=== PATIENT | male | born 1950 | race African-American/Black ===

== ENCOUNTER 2020-05-24 11:12 | Emergency (ER) | payer MEDICARE, OTHER ==
--- NOTE | 2020-05-24 11:40 | ER Document Report ---
ED General - General Chief Complaint: Shortness Of Breath Stated Complaint: SHORT OF BREATH Time Seen by Provider: 05/24/20 11:40 Primary Care Provider: JANAE COUGHLIN MD [ACTIVE STAFF] - Follow up as needed - HPI Notes: 69-year-old male presents to the emergency room for evaluation of shortness of breath for the last week. Reports comes and goes, states worse when he is walking. Denies any history of COPD, asthma, denies smoking. Denies any chest pain, nausea vomiting or diarrhea. Patient has never been checked for Covid. States last Tuesday, he went outdoors [id number]'s house and he found out that he had Covid, he did leave. Has not tried any [id number]-[id number] medications. Denies fevers, chills, chest pain,palpitations, dyspnea, nausea, vomiting, diarrhea, abdominal pain, hematuria,blurred vision, double vision, loss of vision, speech changes, LH, dizziness, syncope, headaches, wheezing, ST, URI, neck pain, weakness, bowel or bladder dysfunction, saddle anesthesia, numbness or tingling in bilateral upper or lower extremities equally, muscle paralysis, weakness in bilateral upper or lower extremities equally or rash. - Related Data Allergies/Adverse Reactions: No Known Allergies Allergy (Verified 05/24/20 13:02) Past Medical History - General Information source: Patient - Social History Smoking Status: Former Smoker Family History: None, Reviewed & Not Pertinent - Immunizations Hx Diphtheria, Pertussis, Tetanus Vaccination: No Review of Systems - Review of Systems Constitutional: No symptoms reported EENT: No symptoms reported Cardiovascular: No symptoms reported Respiratory: See HPI Gastrointestinal: No symptoms reported Genitourinary: No symptoms reported Male Genitourinary: No symptoms reported Musculoskeletal: No symptoms reported Skin: No symptoms reported Hematologic/Lymphatic: No symptoms reported Neurological/Psychological: No symptoms reported Physical Exam - Vital signs Vitals: Temp Pulse Resp BP Pulse Ox 97.5 F 104 H 16 156/82 H 95 05/24/20 11:29 05/24/20 11:29 05/24/20 11:29 05/24/20 11:29 05/24/20 11:29 - Notes Notes: MEDICATIONS: I agree with the patient medications as charted by the RN. ALLERGIES: I agree with the allergies as charted by the RN. PAST MEDICAL HISTORY/PAST SURGICAL HISTORY: Reviewed and agree as charted by RN. SOCIAL HISTORY: Reviewed and agree as charted by RN. FAMILY HISTORY: No significant familial comorbid conditions directly related to patient complaint EXAM: Reviewed vital signs as charted by RN. ALL OTHER SYSTEMS REVIEWED AND NEGATIVE. Dictation was performed using [employer] recognition software PHYSICAL EXAMINATION: GENERAL: Well-appearing, well-nourished and in no acute distress. HEAD: Atraumatic, normocephalic. EYES: Pupils equal round and reactive to light, extraocular movements intact, sclera anicteric, conjunctiva are normal. ENT: Nares patent, oropharynx clear without exudates. Moist mucous membranes. NECK: Normal range of motion, supple without lymphadenopathy LUNGS: Breath sounds clear to auscultation bilaterally and equal. No wheezes rales or rhonchi. HEART: Regular rate and rhythm without murmurs ABDOMEN: Soft, nontender, nondistended abdomen. No guarding, no rebound. No masses appreciated. Musculoskeletal: Normal range of motion, no pitting or edema. No cyanosis. NEUROLOGICAL: Cranial nerves grossly intact. Normal speech, normal gait. Normal sensory, motor exams PSYCH: Normal mood, normal affect. SKIN: Warm, Dry, normal turgor, no rashes or lesions noted. Course - Re-evaluation Re-evalutation: 05/24/20 15:15 Afebrile vital stable no distress. Nurses notes reviewed. CBC negative leukocytosis or anemia, CMP negative for hepatic or renal dysfunction, no electrolyte disturbances. Chest x-ray unremarkable. Rapid flu negative. Covid test is pending. Discussed with patient that he does need to self quarantine, wash his hands frequently, wear his mask until his Covid test is resulted by the health department. Advised to take prednisone and proair as directed. Follow- up with a primary care provider next 24 to 48 hours. After performing a Medical Screening Examination, I estimate there is LOW risk for ACUTE CORONARY SYNDROME, PULMONARY EMBOLI, RESPIRATORY FAILURE, SEPSIS OR MENINGITIS, thus I consider the discharge disposition reasonable. I have reevaluated this patient multiple times and no significant life threatening changes are noted. The patient and I have discussed the diagnosis and risks, and we agree with discharging home with close follow-up. We also discussed returning to the Emergency Department immediately if new or worsening symptoms occur. We have discussed the symptoms which are most concerning (e.g., changing or worsening pain, trouble swallowing or breathing, neck stiffness, fever) that necessitate immediate return. - Vital Signs Vital signs: Temp Pulse Resp BP Pulse Ox 98.0 F 92 16 130/77 H 99 05/24/20 14:07 05/24/20 14:07 05/24/20 14:07 05/24/20 14:07 05/24/20 14:07 - Laboratory Result Diagrams: 05/24/20 12:39 05/24/20 12:39 Laboratory results interpreted by me: 05/24/20 05/24/20 12:39 12:39 RDW 14.1 H Plt Count 142 L Sodium 136.8 L Glucose 133 H Discharge - Discharge Clinical Impression: Person under investigation for COVID-19 Condition: Stable Disposition: HOME, SELF-CARE Instructions: COVID-19 Guidance for Persons Under Investigation Additional Instructions: your labs today were normal. Your EKG was normal, your troponin was normal, your chest x-ray was normal. You are under investigation for Covid, please self quarantine, wear your mask, wash your hands frequently until the Covid results is known. Take the prednisone and use a rescue inhaler as directed. Please follow-up with a primary care provider within the next 24 to 48 hours return immediately for any new or worsening symptoms. Follow up with primary care provider, call tomorrow to make followup appointment. Prescriptions: Prednisone [Deltasone 20 mg Tablet] 3 tab PO DAILY 5 Days #15 tablet Albuterol Sulfate [Proair HFA Inhalation Aerosol 8.5 gm MDI] 2 puff IH Q4H PRN #1 mdi PRN Reason: Forms: Return to Work Referrals: JANAE COUGHLIN MD [ACTIVE STAFF] - Follow up as needed
[2020-05-24 13:02] LABS: ABSOLUTE EOSINOPHILS # (AUTO) 0.1 10^3/uL (0.0-0.6); ABSOLUTE LYMPHOCYTES (AUTO) 0.9 10^3/uL (0.5-4.7); ABSOLUTE MONOCYTES (AUTO) 0.5 10^3/uL (0.1-1.4); ABSOLUTE NEUT (AUTO) 3.4 10^3/uL (1.7-8.2); BASOPHILS % (AUTO) 0.2 % (0-2); EOSINOPHILS % (AUTO) 1.1 % (0-6); HEMATOCRIT 40.6 % (37.9-51.0); HEMOGLOBIN 13.6 g/dL (13.5-17.0); LYMPHOCYTES % (AUTO) 18.5 % (13-45); MEAN CORPUSCULAR HEMOGLOBIN 28.1 pg (27.0-33.4); MEAN CORPUSCULAR HGB CONC 33.6 g/dL (32.0-36.0); MEAN CORPUSCULAR VOLUME 84 fl (80-97); MONOCYTES % (AUTO) 11.1 % (3-13); PLATELET COUNT 142 10^3/uL (150-450); RED BLOOD COUNT 4.85 10^6/uL (4.35-5.55); RED CELL DISTRIBUTION WIDTH 14.1 % (11.5-14.0); SEGMENTED NEUTROPHILS % (AUTO) 69.1 % (42-78); TOTAL CELLS COUNTED % (AUTO) 100 %; WHITE BLOOD COUNT 4.9 10^3/uL (4.0-10.5)
--- NOTE | 2020-05-24 13:06 | RADIOLOGY REPORT (SQ) ---
EXAM DESCRIPTION: CHEST SINGLE VIEW IMAGES COMPLETED DATE/TIME: 05/24/2020 11:27 am REASON FOR STUDY: sob. COMPARISON: None. EXAM PARAMETERS: NUMBER OF VIEWS: One view. TECHNIQUE: Single frontal radiographic view of the chest acquired. RADIATION DOSE: NA LIMITATIONS: None. FINDINGS: LUNGS AND PLEURA: Lungs are hyperinflated. No opacities, masses or pneumothorax. No pleur al effusion. MEDIASTINUM AND HILAR STRUCTURES: No masses. Contour normal. HEART AND VASCULAR STRUCTURES: Heart normal in size. Normal vasculature. BONES: No acute findings. HARDWARE: None in the chest. OTHER: No other significant finding. IMPRESSION: NO ACUTE RADIOGRAPHIC FINDING IN THE CHEST. TECHNICAL DOCUMENTATION: JOB ID: [id number] 2010 [employer]- All Rights Reserved Reading location - IP/workstation name: [email or web address]
[2020-05-24 13:16] LABS: ALBUMIN 4.3 g/dL (3.5-5.0); ALKALINE PHOSPHATASE 98 U/L (38-126); ANION GAP 8 (5-19); ASPARTATE AMINO TRANSFERASE 32 U/L (17-59); BILIRUBIN,TOTAL 0.6 mg/dL (0.2-1.3); BLOOD UREA NITROGEN 15 mg/dL (7-20); CALCIUM 9.4 mg/dL (8.4-10.2); CARBON DIOXIDE 27 mmol/L (22-30); CHLORIDE 102 mmol/L (98-107); GLUCOSE 133 mg/dL (75-110); POTASSIUM 4.4 mmol/L (3.6-5.0); TOTAL PROTEIN 8.2 g/dL (6.3-8.2)
[2020-05-24 14:08] VITALS: BP 130/77
[2020-05-24 14:17] LABS: A TYPE INFLUENZA AG NEGATIVE (NEGATIVE); B INFLUENZA AG NEGATIVE (NEGATIVE)
--- NOTE | 2020-05-24 16:48 | EKG REPORT ---
SEVERITY:- NORMAL ECG - SINUS RHYTHM : Confirmed by: Bandar Murray MD 24-May-2020 16:47:45
== END 2020-05-24 14:27 | disposition home or self-care (01) ==
LOC: ER 11:12
DX: R06.02 Shortness of breath (principal); Z20.828 Contact with and (suspected) exposure to other viral communicable diseases; Z87.891 Personal history of nicotine dependence
CPT/HCPCS: 93005; 99285; 36415; 85025; 80053; 84484; 87804; 71045; 93010; U0003; C9803; 87635

== ENCOUNTER 2020-06-10 00:04 | Emergency (ER) | payer MEDICARE ==
[2020-06-10 04:54] LABS: ALBUMIN 4.5 g/dL (3.5-5.0); ALKALINE PHOSPHATASE 113 U/L (38-126); ANION GAP 16 (5-19); ASPARTATE AMINO TRANSFERASE 56 U/L (17-59); BILIRUBIN,DIRECT 0.5 mg/dL (0.0-0.4); BILIRUBIN,TOTAL 1.2 mg/dL (0.2-1.3); BLOOD UREA NITROGEN 35 mg/dL (7-20); CALCIUM 9.7 mg/dL (8.4-10.2); CARBON DIOXIDE 19 mmol/L (22-30); CHLORIDE 103 mmol/L (98-107); GLUCOSE 256 mg/dL (75-110); TOTAL PROTEIN 8.6 g/dL (6.3-8.2)
[2020-06-10 04:55] LABS: ABSOLUTE LYMPHOCYTES (AUTO) 1.5 10^3/uL (0.5-4.7); ABSOLUTE MONOCYTES (AUTO) 0.6 10^3/uL (0.1-1.4); ABSOLUTE NEUT (AUTO) 7.5 10^3/uL (1.7-8.2); BASOPHILS % (AUTO) 0.2 % (0-2); EOSINOPHILS % (AUTO) 0.2 % (0-6); HEMATOCRIT 47.2 % (37.9-51.0); HEMOGLOBIN 15.6 g/dL (13.5-17.0); LYMPHOCYTES % (AUTO) 15.8 % (13-45); MEAN CORPUSCULAR HEMOGLOBIN 28.4 pg (27.0-33.4); MEAN CORPUSCULAR VOLUME 86 fl (80-97); MONOCYTES % (AUTO) 6.2 % (3-13); PLATELET COUNT 180 10^3/uL (150-450); RED BLOOD COUNT 5.49 10^6/uL (4.35-5.55); RED CELL DISTRIBUTION WIDTH 14.9 % (11.5-14.0); SEGMENTED NEUTROPHILS % (AUTO) 77.6 % (42-78); TOTAL CELLS COUNTED % (AUTO) 100 %; WHITE BLOOD COUNT 9.6 10^3/uL (4.0-10.5)
[2020-06-10] MEDS: NORMAL SALINE 1000 ML 1,000 ML IV PRN ×3 (05:27→08:00)
--- NOTE | 2020-06-10 05:32 | RADIOLOGY REPORT (SQ) ---
EXAM DESCRIPTION: CHEST SINGLE VIEW IMAGES COMPLETED DATE/TIME: 06/10/2020 4:55 am REASON FOR STUDY: shortness of breath COMPARISON: 05/24/2020 EXAM PARAMETERS: NUMBER OF VIEWS: One view. TECHNIQUE: Single frontal radiographic view of the chest acquired. RADIATION DOSE: NA LIMITATIONS: None. FINDINGS: LUNGS AND PLEURA: No opacities, masses or pneumothorax. No pleural effusion. MEDIASTINUM AND HILAR STRUCTURES: No masses. Contour normal. HEART AND VASCULAR STRUCTURES: Heart normal in size. Normal vasculature. BONES: No acute findings. HARDWARE: None in the chest. OTHER: No other significant finding. IMPRESSION: No evidence of acute cardiopulmonary abnormality. TECHNICAL DOCUMENTATION: JOB ID: [id number] 2010 [employer]- All Rights Reserved Reading location - IP/workstation name: [email or web address]
[2020-06-10] MEDS ORDERED: NORMAL SALINE 1000 ML 1,000 ML IV ONE (06:06)
[2020-06-10] MEDS ORDERED: DEXTROSE 50%-WATER 25 GM/50 ML DISP.SYRIN IV ONE (06:33)
[2020-06-10] MEDS ORDERED: CALCIUM GLUCONATE 1000 MG/10 ML INJ IV ONE ×4 (06:33→17:17)
[2020-06-10] MEDS ORDERED: ENOXAPARIN SODIUM INJ 100 MG/1 ML DISP.SYRIN SUBCUT ONE (06:36)
--- NOTE | 2020-06-10 06:38 | RADIOLOGY REPORT (SQ) ---
CT angiogram chest with contrast on 06/10/2020 at 5:41 AM CLINICAL INDICATION: Chest pain, shortness of breath, elevated d-dimer TECHNIQUE: Multiple axial images are obtained throughout the chest following the administration of IV contrast. Computer generated 3D reconstructions/MIPS were performed. This exam was performed according to our departmental dose-optimization program, which includes automated exposure control, adjustment of the mA and/or kV according to patient size and/or use of iterative reconstruction technique. Total DLP is 591.12 mGy*cm. COMPARISON: None FINDINGS: Bolus timing is suboptimal for evaluation of pulmonary embolus but the examination is diagnostic. There are moderate to large sized bilateral filling defects within the central bilateral pulmonary arteries extending into the upper and lower lobe pulmonary arteries consistent with bilateral pulmonary emboli with a moderate to large amount of embolic burden. The right ventricle appears larger than the left ventricle suggesting right heart strain. There is some reflux of contrast into the IVC and hepatic veins indicating elevated right heart pressure. There is no pleural effusion. There is a trace pericardial effusion. Limited visualized upper abdomen is unremarkable. There is no thoracic adenopathy. Right apical pulmonary scarring is noted. There is minimal bilateral dependent atelectasis. The lungs are otherwise clear. No bony abnormality is noted. IMPRESSION: 1. Bilateral pulmonary emboli with moderate to large amount of embolic burden with evidence of likely early right heart strain. Dr. Chisholm in the emergency department was made aware of this finding by myself by phone on 06/10/2020 at 6:36 AM eastern time. 2. No other acute abnormality.
--- NOTE | 2020-06-10 06:44 | ER Document Report ---
ED General - General Chief Complaint: Shortness Of Breath Stated Complaint: DIFFICULTY BREATHING Notes: 69-year-old male without any significant past medical history presents with 1 day of shortness of breath. Patient says he was helping his father lift heavy objects and felt shortness of breath began and has felt short of breath since then that was earlier on day of presentation. Patient denies any recent illness, chest pain, cardiac history, hypertension, hyperlipidemia, diabetes, smoking history, asthma, back pain, abdominal pain, trauma, prior episodes, fev er or chills, cough, myalgia - Related Data Allergies/Adverse Reactions: No Known Allergies Allergy (Verified 05/24/20 13:02) Past Medical History - General Information source: Patient - Social History Smoking Status: Never Smoker Frequency of alcohol use: None Drug Abuse: None Family History: None, Reviewed & Not Pertinent - Immunizations Hx Diphtheria, Pertussis, Tetanus Vaccination: No Review of Systems - Review of Systems Notes: REVIEW OF SYSTEMS: CONSTITUTIONAL : Denies fever, chills, or sweats. EENT: Denies recent cold/sinus symptoms, denies throat pain CARDIOVASCULAR: Denies chest pain, NO RESPIRATORY: Denies cough, + shortness of breath. GASTROINTESTINAL: Denies abdominal pain, nausea/vomiting. GENITOURINARY: Denies difficulty urinating, painful urination. MUSCULOSKELETAL: Denies neck pain, back pain. SKIN: Denies rash or skin lesions. HEMATOLOGIC : Denies easy bruising or bleeding. LYMPHATIC: Denies swollen, enlarged glands. NEUROLOGICAL: Denies headache, denies change in gait. PSYCHIATRIC: Denies anxiety or stress or depression. Physical Exam - Vital signs Vitals: Resp 25 H 06/10/20 00:15 - Notes Notes: PHYSICAL EXAMINATION: GENERAL: Well-appearing, well-nourished and in no acute distress. HEAD: Atraumatic, normocephalic. EYES: Pupils equal round and appropriate constriction, sclera anicteric, conjunctiva are normal. ENT: nares patent, moist mucous membranes. NECK: Normal range of motion, supple without lymphadenopathy LUNGS: Breath sounds clear to auscultation bilaterally and equal. No wheezes rales or rhonchi. Tachypneic, speaking in full sentences. HEART: Tachycardic rate with regular rhythm, no murmurs ABDOMEN: Soft, nontender, no guarding, no masses EXTREMITIES: Normal range of motion, no pitting or edema. No cyanosis. NEUROLOGICAL: Awake, alert, conversing appropriately, moves all extremities spontaneously. PSYCH: Normal mood, normal affect. SKIN: Warm, Dry, normal turgor, no rashes or lesions noted. Course - Re-evaluation Re-evalutation: 06/10/20 06:44 Shortness of breath that began with exertion in 69-year-old male with no known history, but does not closely follow with doctor. Mild tachypnea without any signs of respiratory distress without supplemental oxygen. obtained EKG without any signs of acute ischemia, +tachycardic, no known risk factors but rule out PE given tachycardia also rule out ACS given age and onset with exertion. On work- up patient found to have bilateral PEs without any saddle embolus and signs of mild right heart strain on CT as per radiologist. Patient also found to have new onset of previously unknown renal insufficiency with K of 6 without any EKG abnormalities. Patient given D50 and insulin calcium gluconate and fluids for hyperkalemia and repeat BMP ordered. Withheld serial albuterol given concern for Covid and patient's tachycardia. I repeated EKG which continued not to show any signs of acute ischemia or hyperkalemia. Discussed patient with Dr. Garcias who accepted patient to [facility] and will turn over patient to day hospitalist team. 06/10/20 08:08 At approximately 720 I went in to notify patient that he was waiting for an IMCU bed and PCT was in with patient putting him on nasal cannula. Patient was diaphoretic, and gasping for air, briefly had a pulse ox of 88% and then unable to get pulse ox reading, but was still able to palpate patient's pulse. I placed patient on nonrebreather and called for respiratory and assistance to intubate patient, but patient quickly became unresponsive and then lost pulse. Myself and PCT's were in room when patient lost pulse and ACLS was started immediately and TPA given within few minutes. Dr. Ca came in and led resuscitation while I secured airway. Airway confirmed by condensation, color change, visualization of tube passing through the vocal cords, and bilateral breath sounds. Patient had high pulse ox during resuscitation but then repeated pulse checks remained pulseless. Was in PEA except for 1 brief run of V. tach which was shocked with 200 J. I performed several snvvs-hs-vshi ultrasounds which showed organized but bradycardic cardiac activity, distended RV, no pericardial effusion/tamponade,and b/l lung sliding. 06/10/20 08:36 Dr. Ca was resuscitating patient after ROSC when patient lost pulses again. Dr. Ca called time of . Dr. Ca to write certificate and I informed patient's next of kin, his daughter Yohana Vital. - Vital Signs Vital signs: Temp Pulse Resp BP Pulse Ox 98.4 F 17 117/98 H 98 06/10/20 06:30 06/10/20 07:00 06/10/20 07:00 06/10/20 05:01 - Laboratory Results Result Diagrams: 06/10/20 00:38 06/10/20 00:38 Laboratory Results Interpreted: 06/10/20 06/10/20 06/10/20 00:38 00:38 05:18 RDW 14.9 H D-Dimer > 20.00 H* Potassium 6.0 H* Carbon Dioxide 19 L BUN 35 H Creatinine 2.67 H Est GFR ( Amer) 29 L Est GFR (MDRD) Non-Af 24 L Glucose 256 H Direct Bilirubin 0.5 H ALT 100 H Total Protein 8.6 H Critical Laboratory Results Reviewed: Yes Attending or Supervising Physician who Reviewed Labs: [facility]YAN - Radiology Results Critical Radiology Results Reviewed: Yes Attending or Supervising Physician who Reviewed Radiology: [facility] BRYAN - EKG Interpretation by Me Additional EKG results interpreted by me: 06/10/20 07:18 Initial EKG: Sinus tachycardia, no significant ST elevations or depressions, no peaked T waves, normal intervals Repeat EKG: Sinus tachycardia, no significant ST elevations or depressions, no peaked T waves, mildly prolonged QT, otherwise normal intervals, no significant change from prior EKG Procedures - Intubation Orotracheal Time of Intubation: 07:30 - 06/10/20 Airway evaluation: Normal anatomy Intubation method: Orotracheal Blade size: 4 Equipment used: Glidescope ETT size: 8.0 Breath Sounds after Intubation: Equal End tidal CO2 confirmed: Yes Intubation Complications: No complications Critical Care Note - Critical Care Note Total time excluding time spent on procedures (mins): 75 - Spent time resuscitating coding patient Discharge - Discharge Clinical Impression: Pulmonary embolism Qualifiers: Pulmonary embolism type: unspecified Chronicity: acute Acute cor pulmonale presence: with acute cor pulmonale Qualified Code(s): I26.09 - Other pulmonary embolism with acute cor pulmonale Disposition:
[2020-06-10] MEDS ORDERED: ASPIRIN 81 MG TABLET, CHEWABLE PO ONE (06:46)
[2020-06-10] MEDS ORDERED: ALTEPLASE INJ 100 MG VIAL IV ONE (07:33)
[2020-06-10] MEDS ORDERED: TRANEXAMIC ACID INJ/PF 1,000 MG/10 ML SDV ONE (07:34)
[2020-06-10] MEDS ORDERED: ALTEPLASE INJ 100 MG VIAL ONE (07:34)
[2020-06-10 07:38] LABS: INTERNATIONAL RATION (INR) 1.15; PARTIAL THROMBOPLASTIN TIME 23.6 SEC (23.5-35.8); PROTHROMBIN TIME 14.9 SEC (11.4-15.4)
[2020-06-10] MEDS ORDERED: EPINEPHRINE INJ 1 MG/10 ML DISP.SYRIN IV ONE ×10 (07:43→08:22)
[2020-06-10] MEDS ORDERED: SODIUM BICARBONATE 8.4% INJ 50 MEQ/50 ML DISP.SYRIN ONE ×4 (07:49→17:17)
[2020-06-10 07:52] VITALS: BP 117/98
[2020-06-10] MEDS ORDERED: EPINEPHRINE INJ/PF 1 MG/1 ML AMPULE ONE (07:59)
[2020-06-10] MEDS ORDERED: DEXTROSE 5%-WATER 250 ML with EPINEPHRINE/PF 1 MG IV PRN ×2 (08:00)
[2020-06-10] MEDS ORDERED: EPINEPHRINE INJ 1 MG/10 ML DISP.SYRIN ONE ×2 (08:12→17:17)
--- NOTE | 2020-06-10 09:59 | Progress Note ---
Provider Note Provider Note: CODE NOTE CODE JUNE was called at 7:33 AM at which time CPR was initiated. This was my first encounter with patient during CODE BLUE. On my arrival in the room CPR was in progress. Initial reading was called to be PEA from a bradycardic episode. Patient had been recently diagnosed with bilateral pulmonary embolism with evidence of right heart strain on CT. Airway was secured by Dr. Chisholm who performed intubation with adequate color change and good pleths on the monitor. TPA was administered during the beginning of code. Patient received several rounds of epi, about 4 amps of bicarb, 1 g of calcium chloride and 1 g of calcium gluconate. Rhythm/pulse checks mostly revealed PEA. He did have one episode of V. fib which he received defibrillation for. ROSC was achieved 3 times during the code but unfortunately, he subsequently lost pulse shortly after. During the code he also received 2 L normal saline boluses via pressure bag, placed on an epinephrine drip. [id number]-ul-[id number] ultrasound was performed which showed no evidence of pneumothorax. After many rounds of resuscitation and CPR, time of was called at 8:23 AM. Cause of is Massive Pulmonary Embolism. Refer to nursing code note for specific details. I spoke with patient's daughter Yohana and her in the family waiting. She does not want an autopsy.
[2020-06-10] MEDS ORDERED: SODIUM BICARBONATE 8.4% INJ 50 MEQ/50 ML DISP.SYRIN IV ONE ×2 (11:31→11:35)
--- NOTE | 2020-06-10 14:20 | EKG REPORT ---
SEVERITY:- ABNORMAL ECG - SINUS TACHYCARDIA FIRST DEGREE AV BLOCK RIGHT AXIS DEVIATION : Confirmed by: Lorena Gibson MD 10-Jun-2020 14:19:33
--- NOTE | 2020-06-10 14:20 | EKG REPORT ---
SEVERITY:- ABNORMAL ECG - SINUS TACHYCARDIA RIGHT AXIS DEVIATION ABNRM R PROG, CONSIDER ASMI OR LEAD PLACEMENT BORDERLINE PROLONGED QT INTERVAL : Confirmed by: Lorena Gibson MD 10-Jun-2020 14:19:30
== END 2020-06-10 08:23 | disposition expired ==
LOC: ER 00:04 → EH 07:26 → UNDOADMIN 07:26 → UNDODISIN 08:23 → EH 08:23
DX: I26.09 Other pulmonary embolism with acute cor pulmonale (principal); R06.02 Shortness of breath; N28.9 Disorder of kidney and ureter, unspecified; E87.5 Hyperkalemia; R00.0 Tachycardia, unspecified
CPT/HCPCS: 31500; 93005 ×2; 99285; 92950; 96372; 96361; 96374; 96375; 36415; 82962; 85025; 85610; 85730; 80053; 84484; 85379; 71045; 71275; 93010; A9270; J0610; J3490 ×2; J0171 ×2; J2997; J7060; J7030; J1650